=== PATIENT | female | born 1975 | race Caucasian/White ===

== ENCOUNTER → 2019-02-08 | Outpatient (CLI) | payer OTHER, SELFPAY ==
[2019-02-08 11:56] LABS: Hematocrit 34.8 % (37-47); Hemoglobin 10.8 g/dl (12.0-15.0); Mean Corpuscular Hgb 26.2 pg (27.0-32.0); Mean Corpuscular Volume 84.5 fL (81-99); Mean Platelet Vol. 10.4 fl (6.2-12.0); Platelet Count 295 K/mm3 (150-450); RBC Distribution Width CV 14.7 % (11.6-14.6); RBC Distribution Width SD 45.6 fl (35.1-43.9); Red Blood Count 4.12 M/mm3 (4.2-5.4); White Blood Count 6.8 K/mm3 (4.4-11.0)
[2019-02-08 11:57] LABS: Scan Indicated on CBC? Y/N NO
[2019-02-08 12:56] LABS: ALB/GLOB Ratio 1.3 RATIO (0.9-2.4); AST(SGOT) 14 U/L (15-37); Alanine Aminotransfer ALT/SGPT 19 U/L (13-56); Albumin, Serum 3.9 g/dL (3.2-5.0); Alkaline Phosphatase 69 U/L (45-117); Anion Gap 5 (5-15); BUN 12 mg/dL (7-18); BUN/Creat Ratio 13.3 RATIO (10-20); Calcium,Total 8.6 mg/dL (8.5-10.1); Chloride 108 mmol/L (98-107); Cholesterol 154 mg/dL (200); EST Glomerular Filtration Rate 73 mL/min (>60); Est Glom Filt Rate - Afr Amer 88 mL/min (>60); Glucose 80 mg/dL (74-106); High Density Lipoprotein 45 mg/dL; Potassium 3.9 mmol/L (3.5-5.1); Protein, Total 6.9 g/dL (6.4-8.2); Sodium Level 138 mmol/L (136-145); Triglycerides 75 mg/dL; Very Low Density Lipoprotein 15 mg/dL (5-40)
[2019-02-08 14:32] LABS: Thyroid Stim Hormone (TSH) 1.17 uIU/mL (0.358-3.74)
== END | disposition home or self-care (01) ==
LOC: MFPLAB 11:14
PROVIDERS: Family Provider Family Medicine; PCP Family Medicine; Referring Provider Family Medicine; Visit Provider Family Medicine
DX: R03.0 Elevated blood-pressure reading, without diagnosis of hypertension (principal); Z13.220 Encounter for screening for lipoid disorders; R63.5 Abnormal weight gain
CPT/HCPCS: 36415; 80053; 80061; 84443; 85027

== ENCOUNTER → 2019-12-28 08:56 | Outpatient (CLI) | payer OTHER, SELFPAY ==
--- NOTE | 2019-12-28 09:07 | VDLE_ITS ---
Reason For Study: Edema, DVT RIGHT LEFT GSV is normal. GSV is normal. CFV is compressible, spontaneous, phasic, CFV is compressible, spontaneous, phasic, competent and demonstrates normal competent, and demonstrates normal augmentation. augmentation. FV is compressible, spontaneous, phasic, FV is compressible, spontaneous, phasic, competent and demonstrates normal competent and demonstrates normal augmentation. augmentation. POP V is compressible, spontaneous, phasic, POP V is compressible, spontaneous, phasic, competent and demonstrates normal competent and demonstrates normal augmentation. augmentation. T/P Trunk is compressible. T/P Trunk is compressible. PTV is compressible. PTV is compressible. RT PerV is compressible. LT PerV is compressible. Procedure Exam performed in department. A preliminary report was called and/or faxed to Rebekah. Interpretation Summary Deep veins of the lower extremities are bilaterally patent and compressible segmentally. There is no evidence of deep vein thrombosis on either side. Valvular competence appears intact within the proximal deep venous systems bilaterally. The great saphenous veins appear bilaterally patent and compressible segmentally. Ordering Physician: Homero Welch Referring Physician: Homero Welch Performed By: Thais Cloud RVT
--- NOTE | 2019-12-28 09:10 | ECHOCS_ITS ---
Reason For Study: stroke/ PE Procedure This was a 2D Doppler, Color Flow transthoracic echocardiogram. Contrast injection was performed. Exam performed in department. Left Ventricle Normal LV size. Left ventricular systolic function is normal. The estimated ejection fraction is 55 %. No evidence for diastolic dysfunction. No regional wall motion abnormalities noted. Right Ventricle Normal RV size. Normal systolic function. Atria Normal left atrium. Normal right atrium. Color-flow Doppler compatible with left to right interatrial shunt compatible with a PFO versus ASD. Agitated saline contrast study considered faintly positive compatible with a right to left interatrial shunt compatible with a PFO versus ASD. Mitral Valve There is no mitral annular calcification. Normal mitral valve. Trivial mitral valve insufficiency. Tricuspid Valve Normal tricuspid valve. Trivial tricuspid valve insufficiency. Right ventricular systolic pressure estimated to be 20 mmHg. Aortic Valve Trisinus/trileaflet aortic valve. Normal aortic valve. Pulmonic Valve The pulmonic valve is not well visualized. Trivial pulmonic valve insufficiency. Great Vessels Normal sized aortic root. Pericardium/Pleural No pericardial effusion. Medication 22 gauge I.V. with prn adaptor inserted into right arm. Diluted definity 2.0ml given slow IV push to enhance endocardial definition. Performed a rapid injection of agitated mix of 9 cc saline and 1cc air to assess for atrial septal defect. MMode/2D Measurements & Calculations LVIDd: 4.8 cm IVSd: 0.73 cm Ao root diam: 2.9 cm LVIDs: 3.1 cm LVPWd: 0.82 cm RVDd: 3.6 cm FS: 34.8 % LAV(MOD-bp): 56.2 ml LVAd ap4: 31.0 cm2 SV(MOD-sp4): 54.5 ml LAV(MOD-bp) Indexed: 26.9 ml/m2 EDV(MOD-sp4): 97.4 ml LAV(MOD-sp2): 55.7 ml EDV(sp4-el): 100.0 ml LAV(MOD-sp4): 52.8 ml LVAs ap4: 18.4 cm2 ESV(MOD-sp4): 42.9 ml ESV(sp4-el): 43.5 ml EF(MOD-sp4): 55.9 % EF(sp4-el): 56.6 % SV(sp4-el): 56.6 ml LA A4 area: 19.6 cm2 LA dimension(2D): 4.1 cm RA A4 area: 14.1 cm2 Time Measurements MV dec time: 0.24 sec Doppler Measurements & Calculations MV E max norm: 92.9 cm/sec Lat Peak E' Norm: 16.0 cm/sec Med Peak E' Norm: 11.4 cm/sec MV A max norm: 54.0 cm/sec E/E' lat: 5.8 E/E' med: 8.1 MV E/A: 1.7 Ao V2 max: 110.1 cm/sec LV V1 max: 108.8 cm/sec PA V2 max: 100.9 cm/sec Ao max P.8 mmHg LV V1 max P.7 mmHg PI end-d norm: 146.6 cm/sec TR max norm: 203.4 cm/sec TR max P.6 mmHg Interpretation Summary Contrast injection was performed. Left ventricular systolic function is normal. The estimated ejection fraction is 55 %. Trivial mitral valve insufficiency. Trivial tricuspid valve insufficiency. Trivial pulmonic valve insufficiency. Right ventricular systolic pressure estimated to be 20 mmHg. No evidence for diastolic dysfunction. Color-flow Doppler compatible with left to right interatrial shunt compatible with a PFO versus ASD. Agitated saline contrast study considered faintly positive compatible with a right to left interatrial shunt compatible with a PFO versus ASD. Ordering Physician: Homero Welch Referring Physician: Homero Welch Performed By: Stefani Tariq, SOFIYA, RVT
== END ==
PROVIDERS: PCP Family Medicine; Referring Provider Family Medicine; Visit Provider Family Medicine
DX: I82.409 Acute embolism and thrombosis of unspecified deep veins of unspecified lower extremity (principal); Z86.73 Personal history of transient ischemic attack (TIA), and cerebral infarction without residual deficits
CPT/HCPCS: 93306; 93970; Q9957; A4216; C8929

== ENCOUNTER → 2020-02-27 09:26 | Outpatient (CLI) | payer OTHER, SELFPAY | PROVIDERS: PCP Family Medicine; Visit Provider Family Medicine | DX: R53.83 Other fatigue (principal); E61.1 Iron deficiency | CPT/HCPCS: 36415 ==

== ENCOUNTER → 2020-03-27 09:39 | Outpatient (CLI) | payer OTHER, SELFPAY | PROVIDERS: PCP Family Medicine; Referring Provider Family Medicine; Visit Provider Family Medicine | DX: E61.1 Iron deficiency (principal) | CPT/HCPCS: 36415 ==

== ENCOUNTER 2020-05-23 11:00 | Outpatient (RCR) | payer OTHER, SELFPAY ==
--- NOTE | 2019-12-28 12:00 | SOAP_ITS ---
REASON FOR REFERRAL: The Patient is a 44 year old female referred for a clinical assessment of the Patients cognitive communication abilities at [facility] / [facility] on 12/28/2019 due to persistent aphasia secondary to a recent cerebrovascular accident (12/08/2019) appearing to involve the left hemisphere with aforementioned aphasia and persistent mild right hemiparesthesia. No medical records were available at the time of the evaluation, with all past medical history and details of her recent admission provided by the Patient. The Patient reports acute onset hemiparesthesia occurring early 12/08/2019, with her calling 911 prior to her losing consciousness; she reports she was in and out of consciousness in route to [facility], where workup revealed a embolic and hemorrhagic cerebrovascular accident; no neurosurgery was required, though she reportedly underwent a thrombectomy at some point of her admission. She denies any significant past medical history, with her symptoms reportedly associated with mild asymptomatic COVID-19 (testing positive during admission to [facility]). She reports that her primary difficulties center around communication, reporting difficulties with word finding (anomia) in combination with fluent communication errors (saying to wrong word, mispronouncing words; all with inconsistent awareness) with an increase in significance during written expression; she further reports difficulties with listening and reading comprehension; all deficits are acute in nature and atypical from her baseline cognitive communication functioning. She reports that he often does not say what she means to say, and that when the words come out wrong / in error, she has a much harder time coming up with the correct word after the initial error, indicating that circumlocution varies in effectiveness. The Patient denies the presence of dysphagia, denies any overt signs and symptoms of aspiration, and denies any current or previous issues with aspiration related pulmonary complications, to include pneumonia, bronchitis, or unexplained asthma symptoms. She appears cognitively intact; affect appears appropriate given the Patients current medical circumstances. The Patient is fully ambulatory, and appears well nourished. she remains overall independent for all ADLs and IADL, though expresses difficulty with communication via phone with non-familiar communication partners in addition to difficulties communicating via text (increased incidence of paraphasias). She is currently restricted from driving post CVA, though is able to arrange transportation without assistance. The Patient lives at home with her and two daughters. 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 MEDICAL HISTORY: Cerebrovascular accident associate with the diagnosis of coronavirus (COVID- 19/ SARS-CoV-2) PREVIOUS MODIFIED BARIUM SWALLOW STUDY: None RESULTS OF THE EVALUATION: The Patient presents with mild to moderate aphasia (I69.920), predominantly fluent aphasia / anomic subtype, secondary to a recent cerebrovascular accident (likely left hemispheric location). FUNCTIONAL STATUS ASSESSMENT RESULTS: CORONA INDEX OF INDEPENDENCE IN ACTIVITIES OF DAILY LIVIN/6 BATHIN DRESSIN TOILETIN TRANSFERRIN CONTINENCE: 1 FEEDIN MAGALI-JUNE INSTRUMENTAL ACTIVITIES OF DAILY LIVING SCALE (IADL): 04/05 ABILITY TO USE THE TELEPHONE: 1 SHOPPIN FOOD PREPARATION: 1 HOUSEKEEPIN LAUNDRY: 1 MODE OF TRANSPORTATION: 1 RESPONSIBILITY FOR OWN MEDICATION: 1 ABILITY TO HANDLE FINANCES: 1 FUNCTIONAL AMBULATION CATEGORY (FAC): FAC SCORE: 5 (ambulator- independent) FAC DESCRIPTION: subject can ambulate independently on nonlevel and level surfaces, stairs, and inclines. SUPPLEMENTARY COGNITIVE COMMUNICATION ASSESSMENT RESULTS (SCALES/PROM/RISK): STROKE IMPACT SCALE ? VERSION 3 (SIS v.3): PHYSICAL PROBLEMS: MEMORY / THINKIN/35 PSYCHOSOCIAL FUNCTIONIN/45 COMMUNICATION ABILITIES: DAILY ACTIVITIES: MOBILITY: 45 HEMIPARESIS: ACTIVITY PARTICIPATION: SISv.3 TOTAL SCORE: 227/295 EXECUTIVE SKILLS QUESTIONNAIRE (ESQ): SECTION A ? RESPONSE INHIBITION: 06/18 SECTION B ? WORKING MEMORY: 05/19 SECTION C ? EMOTIONAL CONTROL: 07/19 SECTION D ? FLEXIBILITY: 05/19 SECTION E ? SUSTAINED ATTENTION: SECTION F ? TASK INITIATION: 05/19 SECTION G ? PLANNING AND PRIORITIZIN/21 SECTION H ? ORGANIZATION: 02/16 SECTION I ? TIME MANAGEMENT: 04/18 SECTION J? GOAL DIRECTED PERSISTENCE: SECTION K ? METACOGNITION: 05/19 COGNITIVE COMMUNICATION ASSESSMENT RESULTS (QUANTITATIVE): [place] NAMING TEST (BNT): NUMBER OF CORRECT RESPONSES: NUMBER OF STIMULUS CUES: 39 CORRECT FOLLOWING STIMULUS CUES: 1 NUMBER OF PHONEMIC CUES: 38 CORRECT FOLLOWING PHONEMIC CUES: 11 NUMBER OF MULTIPLE CHOICE CUES: 28 CORRECT FOLLOWING MULTIPLE CHOICE CUES: 19 TYPES OF PARAPHASIAS: PHONOLOGICAL PARAPHASIAS: 2 VERBAL PARAPHASIAS: 21 NEOLOGISTIC PARAPHASIAS: 4 MULTI-WORD PARAPHASIAS: 3 PERCEPTUAL PARAPHASIAS: 0 TOTAL NUMBER CORRECT: 60 BOSTON DIAGNOSTIC APHASIA EXAMINATION ? 3RD EDITION (BDAE-3): FLUENCY: Phrase Length (rating scale): (raw: 6; percentile: 30th) Melodic Line (rating scale): (raw: 6; percentile: 60th) Grammatical Form (rating scale): (raw: 5; percentile: 50th) AUDITORY COMPREHENSION: Basic Word Discrimination: (raw: 33.5; percentile: 40th) Commands: (raw: 6; percentile: 10th) Complex Ideational Material: (raw: 5; percentile: 20th) ARTICULATION: Nonverbal Agility: (raw: 12; percentile: 100th) Verbal Agility: (raw: 12; percentile: 80th) Articulatory Agility (rating scale): (raw: 7; percentile: 100th) RECITATION: Automatized Sequence: (raw: 8; percentile: 100th) Recitation: (raw: 2; percentile: 100th) Cristina: (raw: 2; percentile: 100th) Rhythm: (raw: 2; percentile: 100th) REPETITION: Words: (raw: 10; percentile: 100th) Sentences: (raw: 9; percentile: 80th) NAMING: Responsive Naming: (raw: 16; percentile: 50th) [place] Naming Test: (raw: 22; percentile: 30th) Special Categories: (raw: 12; percentile: 100th) PARAPHASIA: Rating from Speech Profile: (raw: 3; percentile: 30th) Phonemic: (raw: 2; percentile: 60th) Verbal: (raw: 21; percentile: 0) Neologistic: (raw: 4; percentile: 20th) Multi-word: (raw: 2; percentile: 20th) READING: Matching Cases & Scripts: (raw: 8; percentile: 100th) Number Matching: (raw: 11; percentile: 40th) Picture-Word Matching: (raw: 8; percentile: 30th) Lexical Decision: (raw: 1; percentile: 0) Homophone Matching: (raw: 4; percentile: 60th) Free Grammatical Morphemes: (raw: 9; percentile: 30th) Oral Word Reading: (raw: 27; percentile: 60th) Oral Sentence Reading: (raw: 6; percentile: 60th) Oral Sentence Comprehension: (raw: 2; percentile: 20th) Sentence / Paragraph Comprehension: (raw: 7; percentile: 40th) WRITING: Form: (raw: 16; percentile: 40th) Letter Choice: (raw: 26; percentile: 80th) Motor Facility: (raw: 16; percentile: 40th) Primer Words: (raw: 5; percentile: 40th) Regular Phonics: (raw: 4; percentile: 70th) Common Irregular Words: (raw: 3; percentile: 60th) Written Picture Naming: (raw: 11; percentile: 90th) Narrative Writing: (raw: 7; percentile: 70th) COGNITIVE COMMUNICATION ASSESSMENT RESULTS (QUALITATIVE): LANGUAGE FUNCTIONING: somewhat empty content few nouns or verbs, with the Patient often substituting generic filler words for content words (i.e., ?it? or ?thing?); semantic & neologistic paraphasias prevalent throughout the assessment (particular during confrontation naming), and to a lesser extent phonemic paraphasias; this was accompanied by frequent verbal perseverations predominantly of error patterns containing paraphasias; intermittent anomic breaks that intensified as the session progressed, with blocks followed by independent circumlocution attempts with varied success, often leading to perseverations of errors (both previous and current); impaired language comprehension with more complex language samples (paragraph levels) more predominantly with verbal vs. written presentation; language deficits also appearing during written / reading based activities, with expressive deficits heightened during written stimuli; unable to distinguish between real and non-real word stimuli during lexical decision making subtest; noted micrographia that is reportedly vastly atypical from her baseline level of orthographic functioning; frequent spelling errors during written responses (baseline excellent speller); no expressive or receptive aprosodia appreciated; no echolalia; no significant motor speech impairments noted despite mild right labial asymmetry; no clear signs of apraxia, though does intermittently demonstrate odd production errors, appears most likely to be attributed to paraphasia vs. apraxia. EXECUTIVE FUNCTIONING: reduced processing speed (bradyphrenia) likely complicated by her language impairments vs. true bradyphrenia given the increased processing demands as a byproduct of aphasia; continued / evolving assessment is recommended as her aphasia based symptomology continues to improve. MEMORY: no clear memory based abnormalities appreciated throughout the assessment, though the assessment focused predominantly on her communication impairments; further investigation throughout the treatment cycle would be beneficial. ATTENTION: no clear attention based abnormalities appreciated throughout the assessment, though the assessment focused predominantly on her communication impairments; further investigation throughout the treatment cycle would be beneficial. VISUOSPATIAL ABILITIES: no visuospatial based abnormalities appreciated throughout the assessment. VOICE: no vocal abnormalities appreciated throughout the assessment. COGNITIVE COMMUNICATION ASSESSMENT RESULTS (SEVERITY GRADING): APRAXIA OF SPEECH RATING SCALE (ASRS-v1): ASRS-v1 SCORE: 0/4 ASRS-v1 SCORE DESCRIPTION: apraxia not present APHASIA SEVERITY RATING SCALE (ASRS): ASRS SCORE: 3/5 ASRS SCORE DESCRIPTION: the patient can discuss almost all everyday problems with some assistance; reduction of speech and/or comprehension, however, makes conversation about certain material difficult or impossible RECOMMENDATIONS FOR INTERVENTION: Recommend continued speech-language pathology intervention 1-2x per week, over a 4-6 month period prior to re-assessment targeting training and implementation of word finding / anomia based treatments, with specific considerations for Semantic Feature Analysis Treatment (SFAT) and Verb Network Strengthening Treatment (VNeST); and interventions targeting fluent based aphasia symptomology via training and implementation of context based management, paraphrasing, and self-monitoring / awareness strategies; with recommendations to advance through an errorless learning approach to reduce frustrations, w/ focus on expressive communication success vs. precise production POST ASSESSMENT EDUCATION: The Results and recommendations were discussed with the Patient immediately following completion of the assessment, with the Patient verbalizing understanding and agreement with all recommendations and education provided. FUNCTIONAL OUTCOMES: OUTCOME 1: the Patient will utilize recommended compensatory expressive speech strategies and participate in structured intervention sessions utilizing a variety of approaches (SFA, VNeST) to reduce the presence and impact of aphasia / paraphasias within her communication attempts (both verbal and written), during both structured and unstructured therapeutic tasks. OUTCOME 2: the Patient will independently utilize reading comprehension strategies identified during treatment sessions to facilitate recall of multi-paragraph level stimuli during both structured and unstructured therapeutic tasks, with 90% accuracy in 2 out of 3 sessions. OUTCOME 3: the Patient will participate in continual assessment of the cognitive communication profile throughout the intervention cycle to facilitate comprehensive objective date in regards to changes in baseline level of cognitive functioning at the supervised level OUTCOME 4: goal adjustment as needed. Hayden Andres M.A., CCC-GAS WELDING MACHINE OPERATOR, CBIS MBSImP Certified, LSVT Certified [facility] Speech-Language Pathology Department Email: [email or web address]
--- NOTE | 2020-01-02 13:56 | HP.PTEVAL_ITS ---
Patient's Visit Information LAURO HARGROVE is a 44 year old F referred to Physical Therapy by Hoemro Welch MD with a diagnosis of H/O stroke, R sided weakness, expressive aphasia. Date of Evaluation: 01/02/20 Physical Therapist: VERONIKA Alvarado - Visit Plan Frequency: 2x /Week Duration: 4 Weeks Plan: 2X/ week for 4 weeks for LE strengthening, stairs, endurance activities, balance activities with HEP - Subjective Pt had a stroke December 08, 2019. She was at home and had some swelling in one of her legs and laid down on the couch and her went to bed and went upstairs at around 1:30 and dropped hr phome and her hand felt weird and it hit and they called 911. She was in the hospital and that she had a stroke and she woke up the next day and did a scan and they removed 2 clots....and she is not sure where they removed them from.... She was in the hospital from Tuesday to Tuesday night. She was sent to cardiology and waiting for her appointment. She had a test that showed a hole in her heart. She is on oral blood thinners and she is not allowed to drive until things are cleared up. At home she is not having touble doing anything at home. She takes on step at at [place] in the morning down the stairs. She reports that her balance is ok. She has not tried getting up from the floor. 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 She has no dizziness or TRINIDAD's. She has not H/O blood clots in her family. No falls. She does not do any exercises. SHe has been going for walks around the house. She notices that shopping at the grocery store she is fatigued and has not stood for a long time. Her R side is weaker.. slightly... Pt does not want OT as she is doing everything at home ok with ADL's and she is working on her handwriting with speech therapy.... - Objective Gait: walks with normal gait pattern with slightly decreased stance time on the Right. When walking out of the clinic I did hear the patient scuff her R foot while walking. Pt is able to walk on heels and toes but does fatigue out quicker on the R side when walking on her heals. LE MMT: R hip flex 4-/5 and L hip flex 4/5, R hip ext B 3-/4, R hip abd 4-/5 and L 4/5, B knee ext 4/5, R knee flex 4-/5 and L knee felx 4/5, R ankle DF 3+/5 and L ankle DF 4/5, PF B 4/5. FGA: 25. Stairs: up and down recip with a handrail but R leg fatigues out quicker and does not seem as strong or as coordinated at stairs increase in duration. UE MMT: B shld flex 4/5, B shld abd 4/5, B ER/IR 4/5..... - Balance Scores Functional Gait Assessment Score: 25 % Disability: 16.6700 - Goals Goal 1:: I HEP Goal Time Frame: 4-6 Weeks Goal 2:: Increase LE MMT by 1/2 muscle grade: (At the time of the eval: LE MMT: R hip flex 4-/5 and L hip flex 4/5, R hip ext B 3-/4, R hip abd 4-/5 and L 4/5, B knee ext 4/5, R knee flex 4-/5 and L knee felx 4/5, R ankle DF 3+/5 and L ankle DF 4/5, PF B 4/5) Goal Time Frame: 4-6 Weeks Goal 3:: Increase FGA by 2 point to 27 to decrease fall risk. Goal Time Frame: 4-6 Weeks Goal 4:: Be able to go up and down the stairs recip with a handrail without the R LE fatiguing out Goal Time Frame: 4-6 Weeks Goal 5:: Be able to walk for 10 minutes without scuffing R foot with gait. Goal Time Frame: 4-6 Weeks - Rehabilitation Potential Rehabilitation Potential: Good - Anticipated Interventions Thank you for the opportunity to evaluate your patient. For Medicare and Medicare HMO plans, please review the plan of care and approve it. It will need to be FAXED BACK to us at [phone] for Medicare purposes. For Medicare only, by signing this I certify the plan of care. Please let me know if there are questions or concerns regarding this plan of care. Physician Signature: _Date:
--- NOTE | 2020-01-03 11:15 | HP.PTEVAL ---
Patient's Visit Information LAURO HARGROVE is a 44 year old F referred to Physical Therapy by Homero Welch MD with a diagnosis of H/O stroke, R sided weakness, expressive aphasia. Date of Evaluation: 01/02/20 Physical Therapist: VERONIKA Alvarado - Visit Plan Frequency: 2x /Week Duration: 4 Weeks Plan: 2X/ week for 4 weeks for LE strengthening, stairs, endurance activities, balance activities, UE strengthening with HEP. At this point in time the patient does not want to be seen by OT. She is bathing, dressing, and doing ADL's at home including laundry. She is having some trouble with handwriting but says that she is working on that in speech therapy. I discussed her with Janie in OT. We will add R UE strengthening in PT at this time to our POC. - Subjective Pt had a stroke December 08, 2019. She was at home and had some swelling in one of her legs and laid down on the couch and her went to bed and went upstairs at around 1:30 and dropped hr phome and her hand felt weird and it hit and they called 911. She was in the hospital and that she had a stroke and she woke up the next day and did a scan and they removed 2 clots....and she is not sure where they removed them from.... She was in the hospital from Tuesday to Tuesday night. She was sent to cardiology and waiting for her appointment. She had a test that showed a hole in her heart. She is on oral blood thinners and she is not allowed to drive until things are cleared up. At home she is not having touble doing anything at home. She takes on step at at [place] in the morning down the stairs. She reports that her balance is ok. She has not tried getting up from the floor. 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 She has no dizziness or TRINIDAD's. She has not H/O blood clots in her family. No falls. She does not do any exercises. SHe has been going for walks around the house. She notices that shopping at the grocery store she is fatigued and has not stood for a long time. Her R side is weaker.. slightly... Pt does not want OT as she is doing everything at home ok with ADL's and she is working on her handwriting with speech therapy.... - Objective Gait: walks with normal gait pattern with slightly decreased stance time on the Right. When walking out of the clinic I did hear the patient scuff her R foot while walking. Pt is able to walk on heels and toes but does fatigue out quicker on the R side when walking on her heals. LE MMT: R hip flex 4-/5 and L hip flex 4/5, R hip ext B 3-/4, R hip abd 4-/5 and L 4/5, B knee ext 4/5, R knee flex 4-/5 and L knee felx 4/5, R ankle DF 3+/5 and L ankle DF 4/5, PF B 4/5. FGA: 25. Stairs: up and down recip with a handrail but R leg fatigues out quicker and does not seem as strong or as coordinated at stairs increase in duration. UE MMT: B shld flex 4/5, B shld abd 4/5, B ER/IR 4/5..... - Balance Scores Functional Gait Assessment Score: 25 % Disability: 16.6700 - Goals Goal 1:: I HEP Goal Time Frame: 4-6 Weeks Goal 2:: Increase LE MMT by 1/2 muscle grade: (At the time of the eval: LE MMT: R hip flex 4-/5 and L hip flex 4/5, R hip ext B 3-/4, R hip abd 4-/5 and L 4/5, B knee ext 4/5, R knee flex 4-/5 and L knee felx 4/5, R ankle DF 3+/5 and L ankle DF 4/5, PF B 4/5) Goal Time Frame: 4-6 Weeks Goal 3:: Increase FGA by 2 point to 27 to decrease fall risk. Goal Time Frame: 4-6 Weeks Goal 4:: Be able to go up and down the stairs recip with a handrail without the R LE fatiguing out Goal Time Frame: 4-6 Weeks Goal 5:: Be able to walk for 10 minutes without scuffing R foot with gait. Goal Time Frame: 4-6 Weeks - Rehabilitation Potential Rehabilitation Potential: Good - Anticipated Interventions Patient/Client Instruction: Educate patient on: Condition, Plan of Care For the Purpose of:: To increase ROM, To improve muscle performance and motor function, To improve ability to perform ADL's, To increase tolerance to activity/condition/position, To improve performance and independence with ADL's, To improve ability of physical actions for home/community/work/leisure, To improve gait and locomotor functions, To increase flexibility/ROM, To improve endurance, To improve balance, To improve safety with gait Therapeutic Exercise to Include: Strength training, Body mechanics, Postural training, Flexibilty training, Gait and locomotor training, Neuromotor development, Active ROM, Scapular Strength/Stabilization For the Purpose of:: To increase ROM, To improve nutrient delivery to tissue, To improve muscle performance and motor function, To improve ability to perform ADL's, To increase tolerance to activity/condition/position, To decrease level of supervision to perform tasks, To improve ability of physical actions for home/community/work/leisure, To improve gait and locomotor functions, To increase flexibility/ROM, To improve balance Thank you for the opportunity to evaluate your patient. For Medicare and Medicare HMO plans, please review the plan of care and approve it. It will need to be FAXED BACK to us at [phone] for Medicare purposes. For Medicare only, by signing this I certify the plan of care. Please let me know if there are questions or concerns regarding this plan of care. Physician Signature: Date:
--- NOTE | 2020-01-25 13:28 | HP.PTDCSUM ---
It has been my pleasure to treat LAURO HARGROVE referred by Dr. Homero Welch MD, with the diagnosis of H/O stroke, R sided weakness, expressive aphasia for a total of 5 visit(s). Discharge Date: 01/25/20 Please see the following information for a summary of their discharge status. Subjective: pt saw her dr and her released her to drive and to RTW. January 30 pt is RTW. pt would like to stop PT and work out on her own in her gym. % Improvement: 90 Objective/Function: pt is doing well and wants to be done w/ PT. pt is going to see if she has time to come for a f/u recheck. Spoke w/ the PT and PT had pt fill out LEFS in case she could not back to PT. pt will call to make an appt if she decides to have a recheck. Goal 1:: I HEP Goal Progress: Goal Met Goal 2:: Increase LE MMT by 1/2 muscle grade: (At the time of the eval: LE MMT: R hip flex 4-/5 and L hip flex 4/5, R hip ext B 3-/4, R hip abd 4-/5 and L 4/5, B knee ext 4/5, R knee flex 4-/5 and L knee felx 4/5, R ankle DF 3+/5 and L ankle DF 4/5, PF B 4/5) Goal 3:: Increase FGA by 2 point to 27 to decrease fall risk. Goal Progress: Progressing Goal 4:: Be able to go up and down the stairs recip with a handrail without the R LE fatiguing out Goal Progress: Goal Met Goal 5:: Be able to walk for 10 minutes without scuffing R foot with gait. Goal Progress: Progressing Plan: DC PT Discharge Comments: DC PT If there are questions or concerns regarding this patient's physical therapy, please feel free to call me at [phone]. Thank you for the referral of this patient. Sincerely, Ambar Villatoro, MPT
--- NOTE | 2020-02-25 17:33 | HP.PTREVAL ---
Dr. Homero Welch MD, It has been my pleasure to treat LAURO HARGROVE over the last 6 visits for H/O stroke, R sided weakness, expressive aphasia. Please see the progress note below for an update on the physical therapy plan of care! Subjective: Will re-open chart as pt was not taken out and discharged yet due to still seeing speech therapy and will just reassess and start again. Pt went back to work and it was not good. She could barely write. She could not write numbers fast enough or she messed them up. The week she had someone with her but the next week she had to work the floor and she was so exhausted after doing work. Her stroke was December 07...and it was due to COVID and she is now on blood thinners. She is now back in PT because of all this. Her cognition was not good... she did not realize that. She notices that if she is overexerted she will drag her R foot. Stairs are ok... one step at a time if she feels weak. She has trouble sleeping at night.... can only sleep on one side at a time.... she gets cramps in her legs now. She can walk a decent amount... about 1 mile... she has walked one time since she went back to work. This past week was her first week off. She is seeing a cardiac surgeon.... simple procedure due to a whole in her heart.... She is seeing OT for handwriting and speech 2X/ week. Objective/Function: LE MMT: R hip flex 3+/5 and L 4-/5, Knee ext B 4/5, Miah flexion B 4/5, DF R 3+/5 and L 4-/5, PF B 4/5, B hip abd 4/5. Standing R hip flex... fatigues starting at rep #5. Standing L hip flex able to complete 10 without much fatigue. stairs: up and down recip without a rail but with decreased coordination on the R LE Plan Plan: See the pt 1X/ week to encourage walking endurance, R LE strengthening including R ankle strength, gait training, endurance and functional training. Goals Goal 1:: I HEP Goal Time Frame: 4-6 Weeks Goal Progress: Goal Met Goal 2:: Increase LE MMT by 1/2 muscle grade: (At the time of the eval: LE MMT: R hip flex 4-/5 and L hip flex 4/5, R hip ext B 3-/4, R hip abd 4-/5 and L 4/5, B knee ext 4/5, R knee flex 4-/5 and L knee felx 4/5, R ankle DF 3+/5 and L ankle DF 4/5, PF B 4/5) Goal Time Frame: 4-6 Weeks Goal 3:: Increase FGA by 2 point to 27 to decrease fall risk. Goal Time Frame: 4-6 Weeks Goal Progress: Progressing Goal 4:: Be able to go up and down the stairs recip with a handrail without the R LE fatiguing out Goal Time Frame: 4-6 Weeks Goal Progress: Goal Met Goal 5:: Be able to walk for 10 minutes without scuffing R foot with gait. Goal Time Frame: 4-6 Weeks Goal Progress: Progressing Anticipated Interventions Patient/Client Instruction: Educate patient on: Condition, Plan of Care For the Purpose of:: To increase ROM, To improve muscle performance and motor function, To improve ability to perform ADL's, To increase tolerance to activity/condition/position, To improve performance and independence with ADL's, To improve ability of physical actions for home/community/work/leisure, To improve gait and locomotor functions, To increase flexibility/ROM, To improve endurance, To improve balance, To improve safety with gait Therapeutic Exercise to Include: Strength training, Body mechanics, Postural training, Flexibilty training, Gait and locomotor training, Neuromotor development, Active ROM, Scapular Strength/Stabilization For the Purpose of:: To increase ROM, To improve nutrient delivery to tissue, To improve muscle performance and motor function, To improve ability to perform ADL's, To increase tolerance to activity/condition/position, To decrease level of supervision to perform tasks, To improve ability of physical actions for home/community/work/leisure, To improve gait and locomotor functions, To increase flexibility/ROM, To improve balance Please do not hesitate to contact me at [phone] by phone or if you have questions or concerns regarding this new plan of care! Sincerely, Ambar Villatoro, MPT
--- NOTE | 2020-02-26 06:50 | HP.OTEVAL ---
Patient's Visit Information LAURO HARGROVE is a 44 year old F, referred to Occupational Therapy by Dr. Homero Welch MD, with a diagnosis of CVA right side affected. Date of Evaluation: 02/21/20 Occupational Therapist: Chanelle Churchill, RICHARDR/Aba, CHT - Subjective This 44 year old female was seen following CVA in December 08, 2019 . Pt states she has noticed her hand writing is poor. pt states she is working with PT and speech to increase her ind. with memory. Pt states she returned to work and noticed increase difficulty with computer work, handwriting, phone and writing. pt states stress increases her difficulty with writing and work tasks. pt did not even notice this her deficits were noticed. 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 - ADLs Kitchen: Chop with knife, Peel fruits & vegetables, Open jars, Open bottle caps Miscellaneous: Use cell phone, Handle money (change), Hold change, Take things out of wallet, Write, Use computer keyboard - ROM ROM Comments: pt demo full ROM of BUE - Strength Shoulder: right4/5 left 5/5 Elbow: right 4/5 left 5/5 Forearm: right 4/5 left 5/5 Wrist: right 4/5 left 5/5 Registered Nurse Maternal Child: right 25# left 75# Lateral Pinch: right 12# left 20# Tripod Pinch: right 16# left 16# Strength Comments: pt demo with right side weakness - Sensation Thumb: right 2.83 left 2.83 Index: right 2.83 left 2.83 Middle: right 2.83 left 2.83 Ring: right 2.83 left 2.83 Little: right 2.83 left 2.83 Sensation Comments: sensation is WNL - Nine Hole Peg Right: 23.52 Left: 20.56 - In-Hand Manipulation Finger to Palm Translation: Mild - Right, Normal - Left Palm to Finger Translation: Mild - Right, Normal - Left Shift: Mild - Right, Normal - Left Rotation: Mild - Right, Normal - Left - Quick DASH-Disab of Arm,Shoulder& Hand Quick DASH Score: 55.0000 - Goals Goal:: pt will demo a increase in right UB mmt by 1 MM grade to increase pts ind. with ADls and IADls. pt will demo a increase in right girp by 15# or greater to increase her ind. with opening jar lids etc. for ADLs and IADLs by d/c. Goal:: pt will demo the ability to write 8-12 word senteces with good legibility and no decrease in word size as pt writes by d/c. pt will demo the ability to use keyboard typing 2 5 sentance paragraphs with 1 error in less than 1 min to increase ind with IADL and work tasks by d/c - Rehabilitation General Assessment: pt demo with residual right UE weakness and a decrease in right hand fine motor skill limiting her ind. with handwriting, computer work and typing. pt would benefit from skilled OT services 1-2 x week for 6 weeks to establish FMS program, times FMS program and UB strengthening to assist pt in return to her PLOF . Today therapist gave pt a variety of fine motor ideas. pt was receptive and agree to POC. Rehabilitation Potential: Good - Anticipated Interventions A/AAROM/PROM, Strengthening, Joint Protection/Energy Conservation, Fine Motor Coord/Travis, Neuro Reeducation, Sensory Stimulation, Visual/Perceptual Skills, ADL Training - Visit Plan Frequency: 2-3x /Week Duration: 6 Weeks TEXT: Thank you for the opportunity to evaluate your patient. For Medicare and Medicare HMO plans, please review the plan of care and approve it. It will need to be FAXED BACK to us at [phone] for Medicare purposes. Please let me know if there are questions or concerns regarding this plan of care. Physician Signature: Date:
--- NOTE | 2020-04-18 09:29 | HP.OTDCSUM_ITS ---
It has been my pleasure to treat LAURO HARGROVE under orders from Dr. Homero Welch MD, for the diagnosis of CVA right side affected for a total of 5 visit(s). Please see the following information for a summary of their discharge status. 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 right lateral pinch of 16# a increase from 12#. right tripod maintained at 16#. pt demo full UE ROM and MMT is good- pts FMS increased as 9-hole peg test improved from 23.52 seconds to 17.45 seconds - pt has made great gains in her function. Pt reports she is ind. with ADls and IADLS. pt reports she has been ind. cooking and cleaning- pt demo and reports increase in FMS with hand writing and typing. Patient Goals: Regain Strength, Improve Fine Motor Skills, Use Hand/Wrist/Arm Normally Again, Be More Independent in ADLS Goal:: pt will demo a increase in right UB mmt by 1 MM grade to increase pts ind. with ADls and IADls. pt will demo a increase in right girp by 15# or greater to increase her ind. with opening jar lids etc. for ADLs and IADLs by d/c. Goal:: pt will demo the ability to write 8-12 word senteces with good legibility and no decrease in word size as pt writes by d/c. pt will demo the ability to use keyboard typing 2 5 sentance paragraphs with 1 error in less than 1 min to increase ind with IADL and work tasks by d/c Plan: Writing/typing and strengthening Discharge Comments: pt was seen for 5 OT visits following a CVA. pt has made great gains in her strength and fine motor skills. Pt reports 80% improvement from inital eval- please see note above for objective measurments. pt has met OT goals and is D/C at this time. If there are questions or concerns regarding this patient's occupational therapy, please fell free to call me at [phone]. Thank you for the referral of this patient. Sincerely, Chanelle Churchill, OTR/L, CHT
--- NOTE | 2020-05-14 14:04 | HP.PTREVAL_ITS ---
Dr. Homero Welch MD, It has been my pleasure to treat LAURO HARGROVE over the last 15 visits for H/O stroke, R sided weakness, expressive aphasia. Please see the progress note below for an update on the physical therapy plan of care! 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 Saw Dr Morfin and he said to Still working on heart surgery. Rain makes her R side hurt. She is still having trouble with fatigue.... it is getting better. Objective/Function: FGA: 28. LE MMT: R hip flex 4/5 and L hip flex 4+/5, B knee ext 4+/5, R knee flex 4/5 and L knee flex 4+/5, B hip abd 4/5 Plan Plan: Pt needs to be on HOLD because she will be changing insurances. Give complete HEP and start some brain work and R LE strengthening in gym. See the pt 1X/ week to encourage walking endurance, R LE strengthening including R ankle strength, gait training, endurance and functional training. Goals Goal 1:: I HEP Goal Time Frame: 4-6 Weeks Goal Progress: Goal Met Goal 2:: Increase LE MMT by 1/2 muscle grade: (At the time of the eval: LE MMT: R hip flex 4-/5 and L hip flex 4/5, R hip ext B 3-/4, R hip abd 4-/5 and L 4/5, B knee ext 4/5, R knee flex 4-/5 and L knee felx 4/5, R ankle DF 3+/5 and L ankle DF 4/5, PF B 4/5) Goal Time Frame: 4-6 Weeks Goal Progress: Progressing Goal 3:: Increase FGA by 2 point to 27 to decrease fall risk. Goal Time Frame: 4-6 Weeks Goal Progress: Goal Met Goal 4:: Be able to go up and down the stairs recip with a handrail without the R LE fatiguing out Goal Time Frame: 4-6 Weeks Goal Progress: Goal Met Goal 5:: Be able to walk for 10 minutes without scuffing R foot with gait. Goal Time Frame: 4-6 Weeks Goal Progress: Goal Met Anticipated Interventions Patient/Client Instruction: Educate patient on: Condition, Plan of Care For the Purpose of:: To increase ROM, To improve muscle performance and motor function, To improve ability to perform ADL's, To increase tolerance to activity/condition/position, To improve performance and independence with ADL's, To improve ability of physical actions for home/community/work/leisure, To improve gait and locomotor functions, To increase flexibility/ROM, To improve endurance, To improve balance, To improve safety with gait Therapeutic Exercise to Include: Strength training, Body mechanics, Postural training, Flexibilty training, Gait and locomotor training, Neuromotor development, Active ROM, Scapular Strength/Stabilization For the Purpose of:: To increase ROM, To improve nutrient delivery to tissue, To improve muscle performance and motor function, To improve ability to perform AD L's, To increase tolerance to activity/condition/position, To decrease level of supervision to perform tasks, To improve ability of physical actions for home/community/work/leisure, To improve gait and locomotor functions, To increase flexibility/ROM, To improve balance Please do not hesitate to contact me at [phone] by phone or if you have questions or concerns regarding this new plan of care! Sincerely, Ambar Villatoro, MPT
--- NOTE | 2020-08-08 12:42 | HP.SP.DC_ITS ---
ST Discharge Summary - Discharged: Discharge: The patient is a pleasant 45 year old female who attended 15 skilled speech-language intervention sessions spanning from 12/28/2019 to 05/23/2020 targeting cognitive communication abilities secondary to due to persistent aphasia and executive functioning based changes secondary to a recent cerebrovascular accident and COVID-19 infection (12/08/2019; NIHSS:27) that appeared to involve the left hemisphere with aforementioned aphasia and persistent mild right hemiparesthesia. The patient participated in intervention targeting training and implementation of word finding / anomia based treatments, with specific considerations for Semantic Feature Analysis Treatment (SFAT) and Verb Network Strengthening Treatment (VNeST), and interventions targeting fluent based aphasia symptomology via training and implementation of context based management, paraphrasing, and self-monitoring / awareness strategies; with recommendations to advance through an errorless learning approach to reduce frustrations, with a focused placed on expressive communication success vs. precise production, as well as metacognitive based intervention strategies (namely the PQRST and the [place]art cycle). The patient initially attempted re- integration to the vocational setting in February of 2020, though unfortunately this was not successful. 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 Particular difficulties included writing information down sufficiency, following conversations and elucidating pertinent details, with very poor attention based functional deficits. Of note, her expressive abilities appeared to have continued to improve, and was communicating rather well, which she reported that verbal communication was a stronger point during return. She was unsure if she will be able to return to the vocational setting and to what degree, which is understandably upsetting to her. We refocused our intervention to focus predominantly on executive functioning based / attention deficits, in which she appeared to benefit from greatly. She again re-entered the vocational setting in April of this year and was placed on a therapeutic hold as she felt she has been improving sufficiently, and her schedule did not provide many opportunities for intervention. The patient was able to establish contact with this clinician, and reports a much smoother vocational reintegr ation than prior, and is performing exceptionally well in comparison to her prior attempt. Given the rather significant laps between intervention sessions and her successful re-integration back to the vocational setting, it is appropriate to discharge from the skilled speech-language pathology caseload at this time, though I would gladly re-initiate intervention as needed moving forward.
== END 2020-05-23 19:00 | disposition home or self-care (01) ==
LOC: SP 11:00
PROVIDERS: PCP Family Medicine; Referring Provider Family Medicine; Visit Provider Family Medicine
DX: R47.01 Aphasia (principal); Z86.73 Personal history of transient ischemic attack (TIA), and cerebral infarction without residual deficits; R53.1 Weakness
CPT/HCPCS: 92507; 92523; 97110; 97161; 97164; 97166; 97530

== ENCOUNTER → 2020-09-23 16:30 | Outpatient (CLI) | payer BC, SELFPAY ==
[2020-05-14 09:14] VITALS: BMI 36.8
[2020-09-23 17:53] LABS: Absolute Lymphocyte Count 1.45 X10^3/uL (0.83-4.51); Basophil# 0.03 X10^3/uL; Basophil% 0.4 % (0-1); Eosinophil# 0.15 X10^3/uL; Eosinophils% 2.1 % (0-5); Hematocrit 34.6 % (37-47); Hemoglobin 10.5 g/dL (12.0-15.0); Lymphocyte # 1.45 X10^3/ul (4.0); Lymphocyte % 20.5 % (19-41); Mean Corp Hgb Conc 30.3 g/dL (32-36); Mean Corpuscular Hgb 26.8 pg (27.0-32.0); Mean Corpuscular Volume 88.3 fL (81-99); Mean Platelet Vol. 10.2 fl (6.2-12.0); Monocyte# 0.41 X10^3/uL; Monocyte% 5.8 % (0-10); NRBC Flagged by Analyzer 0 % (0-5); Neutrophil # 5.01 X10^3/uL (2.7-7.7); Neutrophil % 70.9 % (47-70); Platelet Count 308 K/mm3 (150-450); RBC Distribution Width CV 12.4 % (11.6-14.6); Red Blood Count 3.92 M/mm3 (4.2-5.4); White Blood Count 7.1 K/mm3 (4.4-11.0)
[2020-09-23 18:11] LABS: Ferritin 6 ng/mL (8-252); Iron 25 ug/dL (50-170); Iron Binding Capacity,Total 397 ug/dL (250-450)
== END ==
PROVIDERS: PCP Family Medicine; Visit Provider Family Medicine
DX: E61.1 Iron deficiency (principal)
CPT/HCPCS: 36415; 82728; 83540; 83550; 85025

== ENCOUNTER → 2020-10-29 15:37 | Outpatient (CLI) | payer BC, SELFPAY ==
[2020-05-14 09:14] VITALS: BMI 36.8
[2020-10-29 18:00] LABS: Absolute Lymphocyte Count 1.44 X10^3/uL (0.83-4.51); Absolute Neutrophil Count 4.6 X10^3/uL (2.0-7.7); Basophil# 0.03 X10^3/uL; Basophil% 0.5 % (0-1); Eosinophil# 0.14 X10^3/uL; Eosinophils% 2.1 % (0-5); Hematocrit 40.9 % (37-47); Hemoglobin 12.8 g/dL (12.0-15.0); Lymphocyte # 1.44 X10^3/ul (4.0); Lymphocyte % 21.9 % (19-41); Mean Corp Hgb Conc 31.3 g/dL (32-36); Mean Corpuscular Hgb 27.9 pg (27.0-32.0); Mean Corpuscular Volume 89.3 fL (81-99); Mean Platelet Vol. 10.8 fl (6.2-12.0); Monocyte# 0.33 X10^3/uL; NRBC Flagged by Analyzer 0 % (0-5); Neutrophil # 4.63 X10^3/uL (2.7-7.7); Neutrophil % 70.2 % (47-70); Platelet Count 263 K/mm3 (150-450); RBC Distribution Width CV 15.9 % (11.6-14.6); RBC Distribution Width SD 52.3 fl (35.1-43.9); Red Blood Count 4.58 M/mm3 (4.2-5.4); White Blood Count 6.6 K/mm3 (4.4-11.0)
[2020-10-29 18:20] LABS: Iron 31 ug/dL (50-170); Iron Binding Capacity,Total 348 ug/dL (250-450); PERCENT IRON SATURATION 8.9 % (15.0-55.0)
== END ==
PROVIDERS: PCP Family Medicine; Referring Provider Family Medicine; Visit Provider Family Medicine
DX: E61.1 Iron deficiency (principal)
CPT/HCPCS: 36415; 83540; 83550; 85025

== ENCOUNTER → 2021-03-24 16:05 | Outpatient (CLI) | payer BC, SELFPAY ==
[2020-11-27 15:29] VITALS: BMI 38.2
[2021-03-24 17:44] LABS: Absolute Lymphocyte Count 2.17 X10^3/uL (0.83-4.51); Basophil# 0.03 X10^3/uL; Basophil% 0.3 % (0-1); Eosinophil# 0.24 X10^3/uL; Eosinophils% 2.7 % (0-5); Hematocrit 40.8 % (37-47); Hemoglobin 13.3 g/dL (12.0-15.0); Lymphocyte # 2.17 X10^3/ul (0.83-4.51); Lymphocyte % 24.1 % (19-41); Mean Corp Hgb Conc 32.6 g/dL (32-36); Mean Corpuscular Hgb 29.7 pg (27.0-32.0); Mean Corpuscular Volume 91.1 fL (81-99); Mean Platelet Vol. 10.7 fl (6.2-12.0); Monocyte# 0.58 X10^3/uL; Monocyte% 6.4 % (0-10); NRBC Flagged by Analyzer 0 % (0-5); Neutrophil # 5.96 X10^3/uL (2.7-7.7); Neutrophil % 66.3 % (47-70); Platelet Count 260 K/mm3 (150-450); RBC Distribution Width CV 13.4 % (11.6-14.6); RBC Distribution Width SD 44.9 fl (35.1-43.9); Red Blood Count 4.48 M/mm3 (4.2-5.4)
[2021-03-24 18:01] LABS: Ferritin 24 ng/mL (8-252); Iron 72 ug/dL (50-170); Iron Binding Capacity,Total 317 ug/dL (250-450)
== END ==
PROVIDERS: PCP Family Medicine; Referring Provider Family Medicine; Visit Provider Family Medicine
DX: D64.9 Anemia, unspecified (principal)
CPT/HCPCS: 36415; 82728; 83540; 83550; 85025

== ENCOUNTER → 2021-06-11 16:13 | Outpatient (CLI) | payer BC, SELFPAY ==
[2021-06-11 17:57] LABS: Iron 54 ug/dL (50-170); Iron Binding Capacity,Total 330 ug/dL (250-450); PERCENT IRON SATURATION 16.4 % (15.0-55.0)
== END ==
PROVIDERS: PCP Family Medicine; Referring Provider Family Medicine; Visit Provider Family Medicine
DX: D64.9 Anemia, unspecified (principal)
CPT/HCPCS: 36415; 83540; 83550

== ENCOUNTER → 2021-08-26 | Outpatient (CLI) | payer BC, SELFPAY | END | disposition home or self-care (01) | LOC: LABSPEC 17:09 | PROVIDERS: PCP Family Medicine; Visit Provider Nurse Practitioner Family | DX: U07.1 COVID-19 (principal) | CPT/HCPCS: 87635; U0005; U0003 ==

== ENCOUNTER 2021-11-06 09:31 | Outpatient (CLI) | payer OTHER, SELFPAY ==
[2021-11-06 10:02] LABS: Absolute Lymphocyte Count 1.45 X10^3/uL (0.83-4.51); Absolute Neutrophil Count 4.7 X10^3/uL (2.0-7.7); Basophil# 0.03 X10^3/uL; Basophil% 0.4 % (0-1); Eosinophil# 0.14 X10^3/uL; Eosinophils% 2.1 % (0-5); Hemoglobin 12.6 g/dL (12.0-15.0); Lymphocyte # 1.45 X10^3/ul (0.83-4.51); Lymphocyte % 21.5 % (19-41); Mean Corp Hgb Conc 33.2 g/dL (32-36); Mean Corpuscular Hgb 30.3 pg (27.0-32.0); Mean Corpuscular Volume 91.3 fL (81-99); Monocyte# 0.41 X10^3/uL; Monocyte% 6.1 % (0-10); NRBC Flagged by Analyzer 0 % (0-5); Neutrophil # 4.67 X10^3/uL (2.7-7.7); Neutrophil % 69.5 % (47-70); Platelet Count 263 K/mm3 (150-450); RBC Distribution Width CV 13.6 % (11.6-14.6); RBC Distribution Width SD 46.3 fl (35.1-43.9); Red Blood Count 4.16 M/mm3 (4.2-5.4); White Blood Count 6.7 K/mm3 (4.4-11.0)
[2021-11-06 10:32] LABS: Vitamin D,25 Hydroxy 28.8 ng/mL
[2021-11-06 10:48] LABS: ALB/GLOB Ratio 1.3 RATIO (0.9-2.4); AST(SGOT) 13 U/L (15-37); Alanine Aminotransfer ALT/SGPT 18 U/L (13-56); Alkaline Phosphatase 58 U/L (45-117); Anion Gap 5 (5-15); BUN 12 mg/dL (7-18); BUN/Creat Ratio 11.5 RATIO (10-20); Calcium,Total 8.8 mg/dL (8.5-10.1); Chloride 107 mmol/L (98-107); Cholesterol 164 mg/dL (200); Creatinine, Serum 1.04 mg/dL (0.55-1.02); EST Glomerular Filtration Rate 61 mL/min (>60); Est Glom Filt Rate - Afr Amer 74 mL/min (>60); Ferritin 16 ng/mL (8-252); Globulin 3.1 g/dL (2.2-4.2); Glucose 91 mg/dL (74-106); High Density Lipoprotein 43 mg/dL; Iron 89 ug/dL (50-170); Iron Binding Capacity,Total 339 ug/dL (250-450); Potassium 4.1 mmol/L (3.5-5.1); Protein, Total 7.1 g/dL (6.4-8.2); Sodium Level 138 mmol/L (136-145); Triglycerides 67 mg/dL; Very Low Density Lipoprotein 13 mg/dL (5-40)
== END 2021-11-06 23:59 | disposition home or self-care (01) ==
LOC: MFPLAB 09:36
PROVIDERS: PCP Family Medicine; Referring Provider Family Medicine; Visit Provider Family Medicine
DX: D64.9 Anemia, unspecified (principal); E55.9 Vitamin D deficiency, unspecified; E66.9 Obesity, unspecified
CPT/HCPCS: 36415; 80053; 80061; 82306; 82728; 82746; 83540; 83550; 85025

== ENCOUNTER → 2024-08-08 | Outpatient (CLI) | payer OTHER, SELFPAY ==
[2024-08-08 17:46] LABS: Absolute Lymphocyte Count 1.79 X10^3/uL (0.83-4.51); Absolute Neutrophil Count 5.4 X10^3/uL (2.0-7.7); Basophil# 0.05 X10^3/uL; Basophil% 0.6 % (0-1); Eosinophil# 0.29 X10^3/uL; Eosinophils% 3.6 % (0-5); Hematocrit 38.4 % (37-47); Hemoglobin 12.8 g/dL (12.0-15.0); Lymphocyte # 1.79 X10^3/ul (0.83-4.51); Lymphocyte % 22.3 % (19-41); Mean Corp Hgb Conc 33.3 g/dL (32-36); Mean Corpuscular Hgb 30.8 pg (27.0-32.0); Mean Corpuscular Volume 92.5 fL (81-99); Mean Platelet Vol. 10.1 fl (6.2-12.0); Monocyte# 0.41 X10^3/uL; Monocyte% 5.1 % (0-10); NRBC Flagged by Analyzer 0 % (0-5); Neutrophil # 5.44 X10^3/uL (2.7-7.7); Platelet Count 255 K/mm3 (150-450); RBC Distribution Width CV 12.9 % (11.6-14.6); RBC Distribution Width SD 43.7 fl (35.1-43.9); Red Blood Count 4.15 M/mm3 (4.2-5.4)
[2024-08-08 18:19] LABS: ALB/GLOB Ratio 1.2 RATIO (0.9-2.4); AST(SGOT) 17 U/L (15-37); Alanine Aminotransfer ALT/SGPT 23 U/L (13-56); Albumin, Serum 4.2 g/dL (3.2-5.0); Alkaline Phosphatase 62 U/L (45-117); Anion Gap 7 (5-15); BUN 11 mg/dL (7-18); Calcium,Total 9.2 mg/dL (8.5-10.1); Chloride 106 mmol/L (98-107); Cholesterol 202 mg/dL (200); EST Glomerular Filtration Rate 63 mL/min (>60); Est Glom Filt Rate - Afr Amer 76 mL/min (>60); Globulin 3.4 g/dL (2.2-4.2); Glucose 85 mg/dL (74-106); High Density Lipoprotein 50 mg/dL; Potassium 3.8 mmol/L (3.5-5.1); Protein, Total 7.6 g/dL (6.4-8.2); Sodium Level 138 mmol/L (136-145); Triglycerides 110 mg/dL; Very Low Density Lipoprotein 22 mg/dL (5-40)
[2024-08-08 22:45] LABS: Vitamin D,25 Hydroxy 21.8 ng/mL
== END | disposition home or self-care (01) ==
LOC: MTLAB 15:02
PROVIDERS: PCP Family Medicine; Referring Provider Family Medicine; Visit Provider Family Medicine
DX: Z00.00 Encounter for general adult medical examination without abnormal findings (principal); E55.9 Vitamin D deficiency, unspecified
CPT/HCPCS: 36415; 80053; 80061; 82306; 85025